=== PATIENT | female | born 1985 | race Caucasian/White ===

== ENCOUNTER → 2016-12-17 | Outpatient (CLI) | payer OTHER ==
[~2016-12-17] MED LIST: ADVIL 200MG TA200 MG PO; ALEVE220 M1 PO; DEXAMETHASONE0.5 M1; GABAPENTIN TAB600 MG PO; IBU800 M1 PO; IRON236 MG; NORCO 325 MG-51 TAB PO; ROXICODONE 55 MG/TAB; XANAX0.5 M1 PO
== END ==
LOC: RAD 10:57
DX: H66.002 Acute suppurative otitis media without spontaneous rupture of ear drum, left ear (principal); J32.0 Chronic maxillary sinusitis; J32.1 Chronic frontal sinusitis; J32.2 Chronic ethmoidal sinusitis

== ENCOUNTER 2016-12-23 13:50 | Emergency (ER) | payer OTHER ==
[~2016-12-23 13:50] MED LIST changes: -DEXAMETHASONE0.5 M1; -GABAPENTIN TAB600 MG PO; -IBU800 M1 PO; -IRON236 MG; -ROXICODONE 55 MG/TAB; -XANAX0.5 M1 PO
[2016-12-23] MEDS ORDERED: XANAX0.5 M1 PO (14:13)
[2016-12-23] MEDS ORDERED: DEXAMETHASONE0.5 M1 (14:13)
[2016-12-23] MEDS ORDERED: IRON236 MG (14:14)
[2016-12-23] MEDS ORDERED: GABAPENTIN TAB600 MG PO (14:14)
[2016-12-23] MEDS ORDERED: ROXICODONE 55 MG/TAB (14:35)
[2016-12-23] MEDS ORDERED: IBU800 M1 PO (15:37)
[2016-12-23 15:48] VITALS: BP 117/78
== END 2016-12-23 15:48 | disposition home or self-care (01) ==
LOC: ED 13:50
DX: H66.92 Otitis media, unspecified, left ear (principal); Z76.5 Malingerer [conscious simulation]; G89.29 Other chronic pain

== ENCOUNTER 2017-07-29 12:10 | Emergency (ER) | payer MEDICAID ==
[~2017-07-29] VITALS: Ht 157.5 cm; Wt 79.5 kg
[~2017-07-29 12:10] MED LIST changes: +DEXAMETHASONE0.5 M1; +GABAPENTIN TAB600 MG PO; +IBU800 M1 PO; +IRON236 MG; +ROXICODONE 55 MG/TAB; +XANAX0.5 M1 PO
[2017-07-29] MEDS ORDERED: CEPHALEXIN500 M1 PO (12:24)
[2017-07-29] MEDS ORDERED: ACETAMINOPHEN A PO (12:24)
[2017-07-29 12:43] LABS: EOS # 0.3 (0.04-0.40); EOS % 1.9 % (1.0-5.0); HEMATOCRIT 43.4 % (37.0-47.0); HEMOGLOBIN 14.7 g/dL (12.5-16.0); LYMPH# 3.4 (1.50-4.00); MEAN CELL VOLUME 85 fl (78-100); MEAN CORPUSCULAR HEMOGLOBIN 29 pg (27-31); MEAN CORPUSCULAR HGB CONC 34 g/dL (33-37); MEAN PLATELET VOLUME 10.6 fl (7.4-10.4); PLATELET COUNT 263 K/mm3 (130-400); RED CELL DISTRIBUTION WIDTH 13.1 % (11.5-14.5); WHITE BLOOD COUNT 13.6 K/mm3 (4.8-10.8)
[2017-07-29 12:54] LABS: ALBUMIN 4.3 g/dL (3.5-5.0); BUN/CREATININE RATIO 12.7 (6.0-26.0); CALCIUM 9.8 mg/dL (8.4-10.2); TOTAL BILIRUBIN 0.4 mg/dL (0.2-1.3); TOTAL PROTEIN 7.9 g/dL (6.3-8.2)
[2017-07-29 14:15] LABS: URINE APPEARANCE HAZY; URINE COLOR YELLOW
[2017-07-29 14:16] LABS: URINE BILIRUBIN NEGATIVE (NEGATIVE); URINE BLOOD NEGATIVE (NEGATIVE); URINE GLUCOSE NEGATIVE (NEGATIVE); URINE KETONE NEGATIVE (NEGATIVE); URINE LEUKOCYTE ESTERASE TRACE (NEGATIVE); URINE NITRATE NEGATIVE (NEGATIVE); URINE PROTEIN(semi-quant) NEGATIVE (NEGATIVE); URINE UROBILINOGEN NORMAL (NORMAL)
[2017-07-29] MEDS ORDERED: SKELAXIN 800MG800 MG PO (14:45)
[2017-07-29] MEDS ORDERED: PERCOCET 2.5-31 EACH PO (14:45)
[2017-07-29] MEDS ORDERED: IBU800 M1 PO (14:45)
[2017-07-29 15:21] VITALS: BP 117/83
== END 2017-07-29 14:52 | disposition home or self-care (01) ==
LOC: ED 12:10
PROVIDERS: Physician Assistant
DX: S33.5XXA Sprain of ligaments of lumbar spine, initial encounter (principal); S70.01XA Contusion of right hip, initial encounter; S30.0XXA Contusion of lower back and pelvis, initial encounter; W11.XXXA Fall on and from ladder, initial encounter; R55 Syncope and collapse; Z97.5 Presence of (intrauterine) contraceptive device; G89.29 Other chronic pain; M54.9 Dorsalgia, unspecified; R01.1 Cardiac murmur, unspecified; F17.210 Nicotine dependence, cigarettes, uncomplicated; K04.7 Periapical abscess without sinus
CPT/HCPCS: J1885; J3010; L0150

== ENCOUNTER 2017-08-11 18:52 | Emergency (ER) | payer MEDICAID ==
[~2017-08-11 18:52] MED LIST changes: +ACETAMINOPHEN A PO; +CEPHALEXIN500 M1 PO; +PERCOCET 2.5-31 EACH PO; +SKELAXIN 800MG800 MG PO
[2017-08-11] MEDS ORDERED: LORAZEPAM1 M1 PO (19:48)
[2017-08-11] MEDS ORDERED: CYCLOBENZAPRINE10 M1 PO (19:49)
[2017-08-11] MEDS ORDERED: IBU800 M1 PO (21:02)
[2017-08-11] MEDS ORDERED: PERCOCET 325 MG1 TA2 PO (21:02)
[2017-08-11] MEDS ORDERED: VIBRAMYCIN HYC100 MG PO (21:02)
[2017-08-11 22:19] VITALS: BP 121/80
== END 2017-08-11 22:32 | disposition home or self-care (01) ==
LOC: ED 18:52
DX: S81.851A Open bite, right lower leg, initial encounter (principal); W54.0XXA Bitten by dog, initial encounter; Y92.007 Garden or yard of unspecified non-institutional (private) residence as the place of occurrence of the external cause; F41.9 Anxiety disorder, unspecified; F43.10 Post-traumatic stress disorder, unspecified
CPT/HCPCS: A4550; A4649; J2060; J2270; J2405

== ENCOUNTER 2017-08-13 13:45 | Outpatient (RCR) | payer MEDICAID ==
[~2017-08-13] VITALS: Ht 157.5 cm; Wt 79.5 kg
[~2017-08-13 13:45] MED LIST changes: +CYCLOBENZAPRINE10 M1 PO; +LORAZEPAM1 M1 PO; +PERCOCET 325 MG1 TA2 PO; +VIBRAMYCIN HYC100 MG PO
[2017-08-13 14:08] VITALS: BP 141/81
--- NOTE | 2017-08-15 09:07 | NUR ---
Pt ambulates in for wound check. Dressing removed. Minimal bloody drainage noted. Ranjan Acevedo at bedside to assess wound. Suture in place. BRENDA applied. Covered in gauze and wrapped with UBNNY
[2017-08-18 11:49] VITALS: BP 131/85
--- NOTE | 2017-08-18 12:07 | NUR ---
patient to room 101 for outpatient rabies vaccine and dressing change to dog bite. patient arrives with no dressing in place to dog bite. reports that she has been having pain to area that feels like stabbing pain when it's touched it is a burning/numb sensation. denies that she has been having any fever or drainage. patient has 2 sutured areas to right calf. edges well approximated. no redness to area or drainage noted at this time. light purple bruising to area surrounding sutures. patient asks when sutures are to come out. reports that she was not instructed previously on date. maritza tabares to patient's bedside to look at dog bite. reports no signs of infection noted at this time. instructed patient to come back tuesday to have sutures removed unless patient feels as though area looks like it's not ready then to wait. area cleansed with sterile saline. applied triple antibiotic ointment to area. gauze applied and secured with hilton wrap per order.
[2017-08-25 19:40] VITALS: BP 137/60
== END 2017-08-25 21:00 | disposition home or self-care (01) ==
LOC: AMSURD 13:45
DX: Z48.00 Encounter for change or removal of nonsurgical wound dressing (principal); Z23 Encounter for immunization; S81.851D Open bite, right lower leg, subsequent encounter

== ENCOUNTER 2017-09-05 21:17 | Emergency (ER) | payer MEDICAID ==
[2017-09-05] MEDS ORDERED: CEPHALEXIN500 M1 PO (22:06)
[2017-09-05] MEDS ORDERED: PERCOCET 325 MG1 TA2 PO (22:06)
[2017-09-05] MEDS ORDERED: BACTRIM DS TAB1 EACH PO (22:06)
[2017-09-05 22:22] VITALS: BP 123/90
== END 2017-09-05 22:22 | disposition home or self-care (01) ==
LOC: ED 21:17
DX: S81.851A Open bite, right lower leg, initial encounter (principal); T79.8XXA Other early complications of trauma, initial encounter; L08.9 Local infection of the skin and subcutaneous tissue, unspecified; W54.0XXA Bitten by dog, initial encounter; F17.200 Nicotine dependence, unspecified, uncomplicated; Z88.0 Allergy status to penicillin; F41.9 Anxiety disorder, unspecified

== ENCOUNTER → 2018-01-11 | Outpatient (CLI) | payer OTHER ==
[~2018-01-11] MED LIST changes: +BACTRIM DS TAB1 EACH PO
== END ==
LOC: RAD 13:42
DX: M25.532 Pain in left wrist (principal); M54.5 Low back pain; Z88.0 Allergy status to penicillin

== ENCOUNTER 2018-02-18 09:24 | Emergency (ER) | payer MEDICAID ==
[2018-02-18] MEDS ORDERED: ACETAMINOPHEN-O1 TAB PO (11:35)
[2018-02-18] MEDS ORDERED: CLEOCIN HC150 MG/CAP PO (11:35)
[2018-02-18] MEDS ORDERED: CIPRO500 M1 PO (11:35)
[2018-02-18 11:40] VITALS: BP 126/84
== END 2018-02-18 11:58 | disposition home or self-care (01) ==
LOC: ED 09:24
DX: S81.852A Open bite, left lower leg, initial encounter (principal); W54.0XXA Bitten by dog, initial encounter; Y92.009 Unspecified place in unspecified non-institutional (private) residence as the place of occurrence of the external cause; F41.9 Anxiety disorder, unspecified
CPT/HCPCS: 90715; J0595; J0696; J1885; J2060; J3010

== ENCOUNTER 2018-02-20 11:26 | Outpatient (RCR) | payer MEDICAID ==
[~2018-02-20] VITALS: Ht 157.5 cm; Wt 85.0 kg
[~2018-02-20 11:26] MED LIST changes: +ACETAMINOPHEN-O1 TAB PO; +CIPRO500 M1 PO; +CLEOCIN HC150 MG/CAP PO
[2018-02-20 11:30] VITALS: BP 122/72
== END 2018-05-21 | disposition home or self-care (01) ==
LOC: AMSURD
DX: Z48.00 Encounter for change or removal of nonsurgical wound dressing (principal); T14.90XA Injury, unspecified, initial encounter; W54.0XXA Bitten by dog, initial encounter

== ENCOUNTER → 2018-03-28 | Outpatient (CLI) | payer MEDICAID | LOC: LAB 11:34 | DX: S81.859A Open bite, unspecified lower leg, initial encounter (principal); L23.1 Allergic contact dermatitis due to adhesives; W54.0XXA Bitten by dog, initial encounter ==

== ENCOUNTER 2018-05-31 04:54 | Emergency (ER) | payer MEDICAID ==
[~2018-05-31] VITALS: Ht 157.5 cm; Wt 90.9 kg
[2018-05-31] MEDS ORDERED: IBU800 M1 PO (05:05)
[2018-05-31] MEDS ORDERED: VISTARIL50 M1 PO (05:07)
[2018-05-31 05:50] VITALS: BP 132/89
== END 2018-05-31 05:50 | disposition home or self-care (01) ==
LOC: ED 04:54
DX: G56.03 Carpal tunnel syndrome, bilateral upper limbs (principal); F17.210 Nicotine dependence, cigarettes, uncomplicated; Z79.899 Other long term (current) drug therapy

== ENCOUNTER 2018-06-14 13:48 | Emergency (ER) | payer MEDICAID ==
[~2018-06-14] VITALS: Ht 157.5 cm; Wt 90.9 kg
[~2018-06-14 13:48] MED LIST changes: +VISTARIL50 M1 PO
[2018-06-14] MEDS ORDERED: PROAIR HFA0.09 MG/AC IH ×2 (13:58→14:55)
[2018-06-14] MEDS ORDERED: AZITHROMYCIN 500MGPK PO (13:58)
[2018-06-14 14:27] LABS: EOS # 0.2 (0.04-0.40); EOS % 1.6 % (1.0-5.0); HEMATOCRIT 46.1 % (37.0-47.0); HEMOGLOBIN 15.9 g/dL (12.5-16.0); LYMPH# 2.7 (1.50-4.00); MEAN CELL VOLUME 82 fl (78-100); MEAN CORPUSCULAR HEMOGLOBIN 28 pg (27-31); MEAN CORPUSCULAR HGB CONC 35 g/dL (33-37); MEAN PLATELET VOLUME 9.8 fl (7.4-10.4); MONO # 1.3 (0.20-0.80); PLATELET COUNT 276 K/mm3 (130-400); RED BLOOD COUNT 5.62 M/mm3 (4.10-5.30); RED CELL DISTRIBUTION WIDTH 13.1 % (11.5-14.5); WHITE BLOOD COUNT 14.8 K/mm3 (4.8-10.8)
[2018-06-14 14:28] LABS: NEU # 10.4 (1.40-6.50)
[2018-06-14 14:37] LABS: ALBUMIN 4.6 g/dL (3.5-5.0); CALCIUM 9.5 mg/dL (8.4-10.2); POTASSIUM 3.9 mmol/L (3.6-5.0); TOTAL BILIRUBIN 0.8 mg/dL (0.2-1.3); TOTAL PROTEIN 8.7 g/dL (6.3-8.2)
[2018-06-14] MEDS ORDERED: TUSSIONEX PENN115 ML PO (14:55)
[2018-06-14] MEDS ORDERED: PREDNISONE20 M1 PO (14:55)
[2018-06-14 15:06] VITALS: BP 141/81
== END 2018-06-14 15:00 | disposition home or self-care (01) ==
LOC: ED 13:48
PROVIDERS: Nurse Practitioner Primary Care
DX: J20.9 Acute bronchitis, unspecified (principal); F17.200 Nicotine dependence, unspecified, uncomplicated; Z88.0 Allergy status to penicillin; Z79.899 Other long term (current) drug therapy
CPT/HCPCS: J7512

== ENCOUNTER → 2018-07-21 14:30 | Outpatient (RCR) | payer MEDICAID ==
[~2018-07-21 14:30] MED LIST changes: +AZITHROMYCIN 500MGPK PO; +PREDNISONE20 M1 PO; +PROAIR HFA0.09 MG/AC IH; +TUSSIONEX PENN115 ML PO
== END | disposition home or self-care (01) ==
LOC: OT 06-26 15:20
DX: G56.03 Carpal tunnel syndrome, bilateral upper limbs (principal); M65.842 Other synovitis and tenosynovitis, left hand; M65.841 Other synovitis and tenosynovitis, right hand

== ENCOUNTER → 2019-01-13 | Outpatient (CLI) | payer MEDICAID | LOC: RAD 11:37 | DX: M25.561 Pain in right knee (principal) ==

== ENCOUNTER 2019-05-13 21:48 | Emergency (ER) | payer MEDICAID ==
[~2019-05-13] VITALS: Ht 157.5 cm; Wt 96.4 kg
[2019-05-13] MEDS ORDERED: REMERON15 MG PO (22:00)
[2019-05-13] MEDS ORDERED: ALPRAZOLAM1 MG PO (22:00)
[2019-05-14] MEDS ORDERED: NORCO 325 MG-51 TA1 PO (00:20)
[2019-05-14 00:41] VITALS: BP 137/87
== END 2019-05-14 00:43 | disposition home or self-care (01) ==
LOC: ED 21:48
DX: M53.3 Sacrococcygeal disorders, not elsewhere classified (principal); F41.0 Panic disorder [episodic paroxysmal anxiety]; F43.10 Post-traumatic stress disorder, unspecified; F17.210 Nicotine dependence, cigarettes, uncomplicated; Z98.890 Other specified postprocedural states
CPT/HCPCS: J1885; J2360

== ENCOUNTER → 2019-06-20 | Outpatient (CLI) | payer MEDICAID ==
[~2019-06-20] MED LIST changes: +ALPRAZOLAM1 MG PO; +NORCO 325 MG-51 TA1 PO; +REMERON15 MG PO
== END ==
LOC: RAD 18:01
DX: M25.511 Pain in right shoulder (principal)

== ENCOUNTER 2019-10-14 17:15 | Emergency (ER) | payer MEDICAID ==
[2019-10-14] MEDS ORDERED: GABAPENTIN100 MG PO (17:26)
[2019-10-14] MEDS ORDERED: MINIPRESS 1M1 MG/CAP PO (17:27)
[2019-10-14] MEDS ORDERED: LAMOTRIGINE25 M1 PO (17:29)
[2019-10-14] MEDS ORDERED: TEMAZEPAM PO (17:29)
[2019-10-14] MEDS ORDERED: TIZANIDINE HYDRO4 MG PO (17:30)
[2019-10-14] MEDS ORDERED: CLEOCIN HCL150 M1 PO (17:47)
[2019-10-14 18:09] VITALS: BP 143/96
== END 2019-10-14 18:09 | disposition home or self-care (01) ==
LOC: ED 17:15
DX: B26.9 Mumps without complication (principal); F41.0 Panic disorder [episodic paroxysmal anxiety]; M54.9 Dorsalgia, unspecified; G89.29 Other chronic pain; F17.210 Nicotine dependence, cigarettes, uncomplicated; Z79.1 Long term (current) use of non-steroidal anti-inflammatories (NSAID); Z98.890 Other specified postprocedural states

== ENCOUNTER → 2022-06-01 | Outpatient (CLI) | payer MEDICAID ==
[~2022-06-01] MED LIST changes: +CLEOCIN HCL150 M1 PO; +GABAPENTIN100 MG PO; +LAMOTRIGINE25 M1 PO; +MINIPRESS 1M1 MG/CAP PO; +TEMAZEPAM PO; +TIZANIDINE HYDRO4 MG PO
[2022-06-01 10:45] LABS: BASO # 0.04 K/mm3 (0.02-0.10); EOS # 0.07 K/mm3 (0.04-0.40); EOS % 0.9 % (1.0-5.0); HEMOGLOBIN 16.3 g/dL (12.5-16.0); LYMPH# 1.05 K/mm3 (1.50-4.00); MEAN CELL VOLUME 86 fl (78-100); MEAN CORPUSCULAR HEMOGLOBIN 29 pg (27-31); MEAN CORPUSCULAR HGB CONC 33 g/dL (33-37); MEAN PLATELET VOLUME 10.3 fl (7.4-10.4); MONO # 1.34 K/mm3 (0.20-0.80); NEU # 5.07 K/mm3 (1.40-6.50); PLATELET COUNT 231 K/mm3 (130-400); RED BLOOD COUNT 5.68 M/mm3 (4.10-5.30); RED CELL DISTRIBUTION WIDTH 12.9 % (11.5-14.5); WHITE BLOOD COUNT 7.6 K/mm3 (4.8-10.8)
[2022-06-01 10:50] LABS: ALBUMIN 4.5 g/dL (3.5-5.0); POTASSIUM 4.2 mmol/L (3.5-5.1)
[2022-06-01 10:51] LABS: CALCIUM 9.6 mg/dL (8.3-10.5)
[2022-06-01 10:52] LABS: TOTAL PROTEIN 8.1 g/dL (6.4-8.3)
[2022-06-01 10:54] LABS: TOTAL BILIRUBIN 0.3 mg/dL (0.2-1.2)
[2022-06-01 10:57] LABS: URINE APPEARANCE HAZY; URINE BILIRUBIN NEGATIVE (NEGATIVE); URINE BLOOD NEGATIVE (NEGATIVE); URINE COLOR DARK YELLOW; URINE GLUCOSE NEGATIVE (NEGATIVE); URINE KETONE NEGATIVE (NEGATIVE); URINE LEUKOCYTE ESTERASE NEGATIVE (NEGATIVE); URINE MUCUS PRESENT (NOT PRESENT); URINE NITRATE NEGATIVE (NEGATIVE); URINE PROTEIN(semi-quant) TRACE (NEGATIVE); URINE UROBILINOGEN NORMAL (NORMAL)
== END ==
LOC: LAB 10:28
PROVIDERS: Nurse Practitioner Family
DX: R42 Dizziness and giddiness (principal); R00.2 Palpitations

== ENCOUNTER → 2023-10-27 | Outpatient (CLI) | payer MEDICAID ==
[~2023-10-27] MED LIST changes: +RT ALBUTEROL CC18 GM IH
== END ==
LOC: LAB 09:43
DX: U07.1 COVID-19 (principal)

== ENCOUNTER → 2023-11-28 | Outpatient (CLI) | payer MEDICAID ==
[2023-11-28 15:34] LABS: CALCIUM 9.5 mg/dL (8.3-10.5)
== END ==
LOC: LAB 15:04
PROVIDERS: Family Medicine
DX: R79.89 Other specified abnormal findings of blood chemistry (principal)

== ENCOUNTER → 2024-01-24 | Outpatient (CLI) | payer MEDICAID ==
[2024-01-24 10:35] LABS: CLUE CELLS PRESENT (Not Observd)
== END ==
LOC: LAB 09:47
PROVIDERS: Nurse Practitioner Family
DX: N89.8 Other specified noninflammatory disorders of vagina (principal); R30.9 Painful micturition, unspecified
CPT/HCPCS: Q0111

== ENCOUNTER → 2024-07-27 | Outpatient (CLI) | payer MEDICAID | LOC: LAB 13:44 | DX: Z13.1 Encounter for screening for diabetes mellitus (principal); Z13.220 Encounter for screening for lipoid disorders ==